=== PATIENT | male | born 1985 | race Caucasian/White ===

== ENCOUNTER 2023-02-28 21:43 | Emergency (ER) | payer OTHER, SELFPAY ==
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
[2023-02-28 21:52] VITALS: BP 168/123; PULSE 74; RESP 18; TEMP 36.9; O2SAT 97
[2023-02-28] MEDS: HYDROmorphone HCL INJ (*CRX) 1 MG/ML SYR 0.5 MG IV PUSH (21:57)
[2023-02-28] MEDS: TETANUS,DIPHTHERIA,AC PERTUSSIS ADULT (0.5 ML) BOOSTRIX IM (22:06)
[2023-02-28] MEDS: ACETAMINOPHEN 500 MG TABLET 1000 MG PO (22:06)
[2023-02-28] MEDS: ceFAZolin 2 GM/D5W 50 ML 2 GM/50 ML BAG IVPB (22:12)
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
[2023-02-28] MEDS: oxyCODONE/ACETAMINOPHEN (*CRX) 5-325 MG TABLET 1 TABLET PO (22:47)
--- NOTE | 2023-02-28 23:01 | PC.NURSE ---
Pt declined ambulance transportation. Pt took private car to [place].
[2023-02-28 23:03] VITALS: BP 156/110; PULSE 115; RESP 18; O2SAT 98
== END 2023-02-28 23:04 | disposition short-term general hospital (02) ==
PROVIDERS: Emergency Provider Emergency Medicine
DX: S62.631B Displaced fracture of distal phalanx of left index finger, initial encounter for open fracture (principal); S61.313A Laceration without foreign body of left middle finger with damage to nail, initial encounter; S61.442A Puncture wound with foreign body of left hand, initial encounter; Z23 Encounter for immunization; M10.9 Gout, unspecified; W39.XXXA Discharge of firework, initial encounter
CPT/HCPCS: 73130; 90471; 90715; 96365; 96375; 99284; A9270; J0690; J1170

== ENCOUNTER 2023-04-28 17:24 | Emergency (ER) | payer OTHER, SELFPAY ==
--- NOTE | ~2023-04-28 | CT_ITS ---
EXAMINATION: CT abdomen pelvis wo con DATE: 04/28/2023 19:24 INDICATION: Right flank pain. TECHNIQUE: Computed tomography (CT) of the abdomen and pelvis was performed without intravenous contr ast. Automated exposure control and iterative reconstruction technique were employed. The dose-length product was 1460.87 mGy-cm. COMPARISON: CT abdomen and pelvis 09/12/19 FINDINGS: The visualized portions of the lung bases demonstrate minimal atelectasis. No pleural effus ion. The heart size is normal. No pericardial effusion. The liver and gallbladder are normal. There i s mild splenomegaly measuring 15.8 cm. The pancreas and adrenal glands are normal. There is a [address] one in right kidney. There are three 1 mm stones in right kidney. There is mild right hydronephrosis and proximal hydroureter. There is a 5 mm stone in right ureter where it crosses the iliac vessels. T here is a small area of focal cortical thinning of left kidney. There are 3 stones in left kidney alex suring up to 4 mm. Normal. There are no dilated loops of bowel. The appendix is normal. There are no pathologically enlarged lymph nodes. There is no free intraperitoneal fluid. There is mild thoracic s pondylosis and mild chronic anterior wedging of multiple thoracic vertebral bodies. There is severe l ower lumbar spondylosis. IMPRESSION: 1. 5 mm stone in mid right ureter with mild right hydronephrosis and proximal hydroureter. 2. Bilateral nonobstructing kidney stones. 3. Chronic mild splenomegaly. Reviewed, dictated and finalized at location E. IMPRESSION: 1. 5 mm stone in mid right ureter with mild right hydronephrosis and proximal h ydroureter. 2. Bilateral nonobstructing kidney stones. 3. Chronic mild splenomegaly.
[2023-04-28 17:51] VITALS: BP 156/94; PULSE 70; RESP 15; TEMP 36.4; O2SAT 100
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
[2023-04-28] MEDS: HYDROmorphone HCL INJ (*CRX) 1 MG/ML SYR 0.5 MG IV PUSH (19:38)
[2023-04-28] MEDS: ACETAMINOPHEN 500 MG TABLET 1000 MG PO (19:38)
[2023-04-28] MEDS: methocarbamoL 750 MG TABLET 1500 MG PO (19:38)
[2023-04-28] MEDS: ONDANSETRON INJ 4 MG/2 ML VIAL IV PUSH (19:38)
[2023-04-28 19:49] LABS: Basophils Absolute Auto 0.1 K/mm3 (0.0-0.1); Basophils Percent Auto 0.4 % (0.2-1.2); Eosinophils Absolute Auto 0.1 K/mm3 (0-0.3); Eosinophils Percent Auto 0.6 % (0-4.4); Hematocrit 43.9 % (42.0-52.0); Hemoglobin 15.2 g/dL (14.0-18.0); Immature Granulocyte Absolute 0.06 K/mm3 (0.00-0.031); Immature Granulocyte Percent A 0.5 % (0-0.5); Lymphocytes Absolute Auto 1.61 K/mm3 (0.9-3.2); Lymphocytes Percent Auto 12.8 % (18.3-44.2); Mean Corpuscular HGB Conc 34.6 g/dl (32-36); Mean Corpuscular Volume 86.6 fl (80-100); Mean Platelet Volume 9.4 fl (7.4-10.4); Monocytes Absolute Auto 0.6 K/mm3 (0.1-0.6); Monocytes Percent Auto 4.7 % (2.6-8.5); Neutrophils Absolute Auto 10.2 K/mm3 (1.3-6.7); Platelet Count Result 301 k/mm3 (150-375); Red Blood Count 5.07 M/mm3 (4.6-6.20); Red Cell Distribution Width 12.9 % (11.5-14.5); White Blood Count 12.6 K/mm3 (4.5-10.0)
[2023-04-28 20:10] LABS: Alanine Aminotransferase 51 U/L (6-50); Albumin Level 4.3 g/dL (3.5-5.1); Alkaline Phosphatase 72 U/L (38-126); Anion Gap 7 mmol/L (8-16); Aspartate Amino Transferase 41 U/L (17-59); Bilirubin,Total 0.8 mg/dL (0.2-1.3); Blood Urea Nitrogen 12 mg/dL (9-20); Calcium 8.9 mg/dL (8.4-10.2); Carbon Dioxide 28 mmol/L (22-30); Chloride 102 mmol/L (98-107); Estimated CRCL calculation 132 ml/min; Estimated Glomerular Filt Rate > 60; Glucose 111 mg/dL (65-110); Potassium 4.2 mmol/L (3.4-5.0); Sodium 137 mmol/L (137-145)
[2023-04-28 20:24] VITALS: PULSE 67; RESP 18; O2SAT 97
[2023-04-28 20:39] LABS: Appearance Urine Clear (Clear); Bacteria Urine None Seen /hpf; Bilirubin Urine Negative (Negative); Blood Urine 3+ (Negative); Color Urine Yellow (Yellow); Glucose Urine UA Negative (Negative); Ketones Urine Negative (Negative); Leukocyte Esterase Ur Negative LEU/UL (Negative); Nitrate Urine Negative (Negative); Non Pathogenic Casts 0-2; Protein Urine Negative (Negative); RBC Urine >100 /hpf (0-2); Specific Grav Ur 1.012 (1.001-1.035); Squamous Epithelial Cell Urine None seen /hpf (Few); WBC Urine 0-5 /hpf; pH Urine 6.5 (5.0-9.0)
[2023-04-28 20:41] LABS: Add Urine Microscopic? YES
[2023-04-28 21:19] VITALS: BP 147/79; PULSE 73; RESP 20; O2SAT 99
== END 2023-04-28 21:20 | disposition home or self-care (01) ==
PROVIDERS: Emergency Provider Emergency Medicine
DX: N13.2 Hydronephrosis with renal and ureteral calculous obstruction (principal); M10.9 Gout, unspecified; R16.1 Splenomegaly, not elsewhere classified
CPT/HCPCS: 36415; 74176; 80053; 81001; 85025; 96374; 96375; 99284; A9270; J1170; J2405